=== PATIENT | female | born 1980 | race Two or more races ===

== ENCOUNTER 2016-09-07 10:14 | Emergency (ER) | payer OTHER ==
[2016-09-07] MEDS ORDERED: LACTATED RINGERS 1,000 ML ONE (11:24)
[2016-09-07] MEDS ORDERED: ONDANSETRON 4 MG/2ML 2 ML VIAL ONE (11:24)
[2016-09-07 11:28] LABS: BASO % 0.2 % (0.2-1.0); EOS # 0.1 (0.0-0.5); EOS % 0.4 % (0.9-2.9); HEMATOCRIT 41.4 % (37.0-47.0); HEMOGLOBIN 13.3 gm/l (12.0-16.0); IMM NEUT # 0.1 K/mm3 (0-0.2); IMM NEUT% 0.5 % (0-1); LYMPH # 0.9 (1.0-4.8); LYMPH % 4.3 % (15-45); MEAN CELL VOLUME 80.7 fl (81.0-99.0); MEAN CORPUSCULAR HEMOGLOBIN 25.9 pg (27.0-31.0); MEAN CORPUSCULAR HGB CONC 32.1 g/dl (33.0-37.0); MEAN PLATELET VOLUME 10.1 fl (7.4-10.4); MONO # 0.6 (0.0-0.8); NEUT % 91.6 % (43-75); PLATELET COUNT 408 K/mm3 (130-400); RED CELL DISTRIBUTION WIDTH 14.2 % (11.5-14.5)
[2016-09-07 11:42] LABS: ALB/GLOB RATIO 1.2 (>1.0); ALBUMIN 4.4 gm/dL (3.5-5.7); CALCIUM 9.3 mg/dL (8.6-10.3)
[2016-09-07 12:14] LABS: BAND 4 % (0-10); BASOPHIL 1 % (0-1); EOSINOPHIL 0 % (1-3); LYMPHOCYTE 5 % (15-45); MONOCYTE 3 % (4-12); NEUTROPHILS 87 % (43-75); PLATELET ESTIMATE NORMAL (NORMAL); TOTAL CELLS COUNTED 100
[2016-09-07 13:09] LABS: SPECIFIC GRAVITY 1.015 (1.001-1.030); URINE BILIRUBIN NEGATIVE (NEGATIVE); URINE BLOOD NEGATIVE (NEGATIVE); URINE GLUCOSE (UA) NEGATIVE (NEGATIVE); URINE LEUKOCYTE ESTERASE TRACE (NEGATIVE); URINE NITRITE NEGATIVE (NEGATIVE); URINE PROTEIN NEGATIVE (NEGATIVE); URINE UROBILINOGEN NORMAL (0-1 mg/dl)
[2016-09-07 13:11] LABS: URINE APPEARANCE CLEAR; URINE COLOR YELLOW
[2016-09-07] MEDS ORDERED: ACETAMINOPHEN 500 MG TABLET ONE (13:16)
[2016-09-07 13:21] LABS: URINE BACTERIA RARE; URINE EPITHELIAL CELLS 0-2 /hpf; URINE RBC RARE /hpf
[2016-09-07] MEDS ORDERED: CEPHALEXIN 500 MG CAPSULE ONE (13:35)
[2016-09-07] MEDS ORDERED: CLINDAMYCIN HCL 150 MG CAPSULE ONE (13:36)
== END 2016-09-07 14:00 | disposition home or self-care (01) ==
LOC: ED 10:14
DX: O91.23 Nonpurulent mastitis associated with lactation (principal); N61.0 Mastitis without abscess; R11.10 Vomiting, unspecified